=== PATIENT | male | born 2000 | race Caucasian/White ===

== ENCOUNTER 2020-03-22 09:49 | Emergency (ER) | payer SELFPAY ==
[2020-03-22 10:10] VITALS: BP 134/65; PULSE 62; RESP 16; TEMP 36.9; O2SAT 100
--- NOTE | 2020-03-22 10:11 | ED.EAR ---
HPI - Ear Problem General Chief complaint: Ear Stated complaint: Ear pain Time Seen by Provider: 03/22/20 10:11 Source: patient and RN notes reviewed Mode of arrival: ambulatory Limitations: no limitations History of Present Illness HPI Narrative: 19-year-old male presents with concern for left ear pain. Reports frequent ear infections. Reports tympanostomy tubes. Reports drainage from the right ear. He desires nasal congestion, nasal drainage, sore throat, cough, fever, malaise. MD Complaint: ear pain Related Data Allergies Allergy/AdvReac Type Severity Reaction Status Date / Time No Known Allergies Allergy Verified 03/22/20 10:15 Review of Systems Review of Systems: Narrative: CONSTITUTIONAL: Denies malaise, chills, sweats, or fever. EYES: Denies visual changes, redness, or discharge. ENT: Reports rhinorrhea, congestion, sinus pain, and sore throat. Reports left ear pain, right ear drainage CARDIOVASCULAR: Denies chest pain, palpitations, or edema. RESPIRATORY: Denies cough or dyspnea. GASTROINTESTINAL: Denies abdominal pain, nausea, vomiting, diarrhea SKIN: Denies rash or itching. MUSCULOSKELETAL: Denies myalgia. NEUROLOGIC: Denies headache. All systems reviewed & are unremarkable except as noted in HPI and below PMFSH Social History Social History Gender identity (if verbalized by the patient): Male Comments At time of signature, agree with nursing past medical, surgical, social and family history. There is no relevant family history pertinent to the presenting complaint Exam Narrative: Exam Narrative: GENERAL: Well-appearing, well-nourished, and in no acute distress. HEAD: Normocephalic EYES: PERRLA, conjunctivae clear ENT: Nares clear, turbinates pink, no discharge. Mucous membranes moist. Left TM pearly wilson with sharp light reflex, no tympanostomy tube noted, TM intact, auditory canal erythematous and edematous with tragal tenderness; right auditory canal unremarkable, tympanostomy tube intact with purulent drainage. Oropharynx not erythematous without lesions. Tonsils not enlarged and without exudate, no drooling, no hoarseness, no trismus, uvula midline. NECK: Supple. No lymphadenopathy CHEST: Clear to auscultation, breath sounds equal. No wheezing, rhonchi, rales, or stridor. No respiratory distress, speaks in full sentences. HEART: Regular rate and rhythm. No murmur heard. SKIN: Warm, dry, no rash. NEURO: Alert and oriented x3. PSYCH: Normal mood and affect Course Course Emergency Course: Patient is aware of diagnosis, understands and agrees to treatment plan. Anticipatory guidance given. Patient agrees to follow-up as directed and is aware of reasons to seek care at the emergency department. Portions of this record may have been created with voice recognition software Vital Signs Vital signs: Vital Signs Temperature 98.5 F 03/22/20 10:10 Pulse Rate 62 03/22/20 10:10 Respiratory Rate 16 03/22/20 10:10 Blood Pressure 134/65 03/22/20 10:10 Pulse Oximetry 100 03/22/20 10:10 Temperature 98.5 F 03/22/20 10:10 Pulse Rate 62 03/22/20 10:10 Respiratory Rate 16 03/22/20 10:10 Blood Pressure 134/65 03/22/20 10:10 Pulse Oximetry 100 03/22/20 10:10 Reviewed. Pt has been instructed to follow up with his primary care provider within the next week regarding his elevated blood pressure today. Medical Decision Making MDM Narrative Medical decision making narrative: Differential diagnosis considered: Strep pharyngitis, allergic rhinitis, upper respiratory tract infection, sinusitis, rhinosinusitis, nasopharyngitis. viral pharyngitis, otitis media, otitis externa, pneumonia, bronchitis, viral cough syndrome, viral syndrome, and influenza. Exam findings show no acute concerns or changes; patient is non-toxic appearing and is in no distress. Patient is appropriate for outpatient treatment and follow-up. Vital Signs Vital Signs: Vital Signs Temperature 98.5 F 03/22/20 10:10
== END 2020-03-22 10:26 | disposition home or self-care (01) ==
PROVIDERS: Emergency Provider Nurse Practitioner
DX: H66.004 Acute suppurative otitis media without spontaneous rupture of ear drum, recurrent, right ear (principal); H60.502 Unspecified acute noninfective otitis externa, left ear
CPT/HCPCS: 99203; G0463

== ENCOUNTER 2021-02-26 20:19 | Emergency (ER) | payer OTHER, SELFPAY ==
--- NOTE | ~2021-02-26 | XR_ITS ---
EXAMINATION: XR ankle LT min 3V EXAM DATE: 02/26/2021 20:39 INDICATION: Pain to posterior ankle, unable to bear weight. TECHNIQUE: Left ankle frontal, lateral and oblique projections obtained and reviewed. There is no pr ior study for comparison. FINDINGS: The left ankle mortise appears intact. There are no acute fractures or dislocations ident ified. There is no subcutaneous gas. The soft tissue is unremarkable. There are no radiopaque for eign bodies. IMPRESSION: 1. Unremarkable XR ankle LT min 3V exam. Reviewed, dictated and finalized at location A.
[2021-02-26 20:20] VITALS: BP 146/82; PULSE 109; RESP 16; TEMP 36.7; O2SAT 100
--- NOTE | 2021-02-26 20:31 | PC.NURSE ---
XY at bedside for imaging at this time.
--- NOTE | 2021-02-26 20:38 | ED.GENADULT ---
HPI - General Adult General Chief complaint: Extremity Injury, Lower <Carlin Hernandez PA-C - Last Filed: 02/26/21 21:00> Stated complaint: foot injury <Carlin Hernandez PA-C - Last Filed: 02/26/21 21:00> Time Seen by Provider: 02/26/21 20:26 <Carlin Hernandez PA-C - Last Filed: 02/26/21 21:00> Source: patient and RN notes reviewed <Carlin Hernandez PA-C - Last Filed: 02/26/21 21:00> Mode of arrival: EMS <Carlin Hernandez PA-C - Last Filed: 02/26/21 21:00> Limitations: no limitations <Carlin Hernandez PA-C - Last Filed: 02/26/21 21:00> History of Present Illness HPI narrative: Patient is a 20-year-old male who presents to emergency department for evaluation of left ankle pain patient had a pallet glenny run into his ankle while at work today presents per EMS noting aching pain to the posterior aspect of the ankle patient denies other injuries or complaints on arrival does not appear distressed or uncomfortable <Carlin Hernandez PA-C - Last Filed: 02/26/21 21:00> Related Data Allergies/adverse reactions: Allergies Allergy/AdvReac Type Severity Reaction Status Date / Time No Known Allergies Allergy Verified 02/26/21 20:42 <Carlin Hernandez PA-C - Last Filed: 02/26/21 21:00> Review of Systems Review of Systems: All systems reviewed & are unremarkable except as noted in HPI and below <Carlin Hernandez PA-C - Last Filed: 02/26/21 21:00> [facility] Social History Social History: Social History (Updated 02/26/21 @ 20:39 by Carlin Hernandez PA-C) Smoking status: Never smoker Gender identity (if verbalized by the patient): Male <BLANCA Willis Last Filed: 02/26/21 21:00> Exam Narrative: Exam Narrative: GENERAL: Well-appearing, well-nourished, and in no acute distress. HEAD: Normocephalic, atraumatic. EYES: PERRLA and EOMI. ENT: Nares clear, no rhinorrhea or epistaxis. Mucous membranes moist. EXTREMITIES: Normal range of motion. No edema. Tenderness to the posterior aspect of the left ankle no deformity SKIN: Warm, dry, no rash. NEURO: No focal deficits. Alert and oriented x3. Neurovascularly intact PSYCH: Normal mood and affect. <Carlin Hernandez PA-C - Last Filed: 02/26/21 21:00> Course Vital Signs Vital signs: Vital Signs Temperature 98.1 F 02/26/21 20:20 Pulse Rate 109 H 02/26/21 20:20 Respiratory Rate 16 02/26/21 20:20 Blood Pressure 146/82 H 02/26/21 20:20 Pulse Oximetry 100 02/26/21 20:20 Temperature 98.1 F 02/26/21 20:20 Pulse Rate 109 H 02/26/21 20:20 Respiratory Rate 16 02/26/21 20:20 Blood Pressure 146/82 H 02/26/21 20:20 Pulse Oximetry 100 02/26/21 20:20 <Carlin Hernandez PA-C - Last Filed: 02/26/21 21:00> Vital Signs Temperature 98.1 F 02/26/21 20:20 Pulse Rate 109 H 02/26/21 20:20 Respiratory Rate 16 02/26/21 20:20 Blood Pressure 146/82 H 02/26/21 20:20 Pulse Oximetry 100 02/26/21 20:20 Temperature 98.1 F 02/26/21 20:20 Pulse Rate 109 H 02/26/21 20:20 Respiratory Rate 16 02/26/21 20:20 Blood Pressure 146/82 H 02/26/21 20:20 Pulse Oximetry 100 02/26/21 20:20 <Nancy Irwin MD - Last Filed: 02/26/21 21:15> Medical Decision Making MDM Narrative Medical decision making narrative: Patients injury or pain is consistent with musculoskeletal etiology. No signs of neurological or vascular compromise on exam. Compartments and tisues are soft without signs of compartment syndrome. Pain is felt appropriate for further evaluation on an outpatient basis. <Carlin Hernandez PA-C - Last Filed: 02/26/21 21:00> Vital Signs Vital Signs: Vital Signs Temperature 98.1 F 02/26/21 20:20 Pulse Rate 109 H 02/26/21 20:20 Respiratory Rate 16 02/26/21 20:20 Blood Pressure 146/82 H 02/26/21 20:20 Pulse Oximetry 100 02/26/21 20:20 Temperature 98.1 F 02/26/21 20:20 Pulse Rate 109 H 02/26/21 20:20 Respiratory Rate 16 06
[2021-02-26] MEDS: IBUPROFEN 600 MG TABLET PO (20:41)
[2021-02-26 21:23] VITALS: BP 128/78; PULSE 106; RESP 18; O2SAT 100
== END 2021-02-26 21:23 | disposition home or self-care (01) ==
PROVIDERS: Emergency Provider General Practice
DX: S99.912A Unspecified injury of left ankle, initial encounter (principal); W24.0XXA Contact with lifting devices, not elsewhere classified, initial encounter
CPT/HCPCS: 73610; 99283; A9270

== ENCOUNTER 2021-07-03 13:15 | Emergency (ER) | payer OTHER, SELFPAY ==
[2021-07-03 13:24] VITALS: BP 149/87; PULSE 70; RESP 16; TEMP 36.6; O2SAT 99
--- NOTE | 2021-07-03 13:24 | ED.EAR ---
HPI - Ear Problem General Chief complaint: Ear Stated complaint: sore throat Time Seen by Provider: 07/03/21 13:24 Source: patient and RN notes reviewed Mode of arrival: ambulatory Limitations: no limitations History of Present Illness HPI Narrative: Kevin is a 21-year-old male patient who ambulated into the [facility]. Patient states he is having bilateral ear pain starting on Thursday. Patient states he has had a fever. Patient has a long history of ear infections and otitis externa. Patient had tympanostomy tubes placed in 2017. Patient states he is only had 2 infections since. MD Complaint: ear pain Related Data Allergies Allergy/AdvReac Type Severity Reaction Status Date / Time No Known Allergies Allergy Verified 02/26/21 20:42 Review of Systems Review of Systems: CONSTITUTIONAL: Denies body aches, fever, chills, or sweats. EYES: Denies visual changes, redness, or discharge. ENT: Denies rhinorrhea,+ congestion, sore throat, or+ otalgia. CARDIOVASCULAR: Denies chest pain, palpitations, or edema. RESPIRATORY: Denies cough or dyspnea. GASTROINTESTINAL: Denies abdominal pain, nausea, vomiting, or diarrhea. GENITOURINARY: Denies dysuria or hematuria. SKIN: Denies rash, itching, or wounds. MUSCULOSKELETAL: Denies back pain, joint pain, or myalgia. NEUROLOGIC: Denies headache, numbness, tingling, or weakness. PSYCH: Denies depression or anxiety. All systems reviewed & are unremarkable except as noted in HPI and below PMFSH Social History Social History Smoking status: Never smoker Gender identity (if verbalized by the patient): Male Comments At time of signature, I have reviewed and agree with nursing past medical, surgical, social and family history unless otherwise noted. Please see nursing chart for further information. There is no relevant family history pertinent to the presenting complaint Exam Narrative: GENERAL: Well-appearing, well-nourished, and in no acute distress. HEAD: Normocephalic, atraumatic. EYES: EOMI. No redness or drainage. Conjunctivae normal. ENT: Mucous membranes pink nasal membranes erythematous with clear rhinorrhea. Bilateral tympanic membranes are erythematous. Bilateral ear canals are erythematous and swollen. Posterior pharynx is minimally erythemic with moderate amount of drainage and no exudate. Uvula midline. NECK: Normal AROM. Supple. No lymphadenopathy. CHEST: No respiratory distress. Clear to auscultation. MUSCULOSKELETAL: No bony tenderness. EXTREMITIES: Normal range of motion. No edema. SKIN: Warm, dry, no rash. Capillary refill normal. Normal skin turgor. NEURO: No focal deficits. Alert and oriented x3. Gait steady. PSYCH: Normal affect. No signs of depression or anxiety. Course Vital Signs Vital signs: Vital Signs Temperature 36.6 C 07/03/21 13:24 Pulse Rate 70 07/03/21 13:24 Respiratory Rate 16 07/03/21 13:24 Blood Pressure 149/87 H 07/03/21 13:24 Pulse Oximetry 99 07/03/21 13:24 Temperature 36.6 C 07/03/21 13:24 Pulse Rate 70 07/03/21 13:24 Respiratory Rate 16 07/03/21 13:24 Blood Pressure 149/87 H 07/03/21 13:24 Pulse Oximetry 99 07/03/21 13:24 Reviewed. Pt has been instructed to follow up with his PCP regarding his elevated blood pressure today. Medical Decision Making MDM Narrative Medical decision making narrative: Bilateral tympanic membranes are erythematous ,bilateral canals are erythematous and erythemic. Bilateral tympanostomy tubes are noted Differential Diagnosis Differential Diagnosis: Otitis media, otitis externa, sinusitis Medical Records Medical records reviewed: Yes I reviewed the external patient's medical records. Vital Signs Vital Signs: Vital Signs Temperature 36.6 C 07/03/21 13:24 Pulse Rate 70 07/03/21 13:24 Respiratory Rate 16 07/03/21 13:24 Blood Pressure 149/87 H 07/03/21 13:24 Pulse Oximetry 99 07/03/21 13:24
== END 2021-07-03 13:40 | disposition home or self-care (01) ==
PROVIDERS: Emergency Provider Nurse Practitioner Family
DX: H66.003 Acute suppurative otitis media without spontaneous rupture of ear drum, bilateral (principal); H60.503 Unspecified acute noninfective otitis externa, bilateral
CPT/HCPCS: 99213; G0463

== ENCOUNTER 2021-09-04 11:02 | Emergency (ER) | payer OTHER, SELFPAY ==
[2021-09-04 11:57] VITALS: BP 143/107; PULSE 76; RESP 16; TEMP 35.8; O2SAT 98
--- NOTE | 2021-09-04 13:03 | ED.URI ---
HPI - URI/Sore Throat General Chief Complaint: Upper Respiratory Infection Stated Complaint: cough Time Seen by Provider: 09/04/21 13:03 Source: patient Mode of arrival: ambulatory Limitations: no limitations History of Present Illness HPI Narrative: Kevin Rm is a 21 yo male with severe speech impediment states he came to make sure that he does not have the virus. States he has been having a cough sneezing runny nose intermittently and feels tired x 3 days, Will be checked for flu and PCR Covid sent Related Data Home Medications Medication Instructions Recorded Confirmed No Home Medications 09/04/21 09/04/21 Allergies Allergy/AdvReac Type Severity Reaction Status Date / Time No Known Allergies Allergy Verified 02/26/21 20:42 Review of Systems Review of Systems: CONSTITUTIONAL: Denies fever, chills, sweats. Has fatigue EYES: Denies visual changes, redness, discharge. ENT: Denies rhinorrhea, has congestion, sore throat, otalgia. CARDIOVASCULAR: Denies chest pain, palpitations, edema. RESPIRATORY: Denies dyspnea, wheezing, has cough GASTROINTESTINAL: Denies abdominal pain, nausea, vomiting, diarrhea. GENITOURINARY: Denies dysuria, hematuria, abnormal discharge SKIN: Denies rash or itching. NEUROLOGIC: Denies numbness, or focal weakness. PSYCHIATRIC: Denies anxiety or depression. [facility] Social History Social History (Updated 09/04/21 @ 13:12 by Supriya Carson CNP) Smoking status: Never smoker Living arrangements: with family Gender identity (if verbalized by the patient): Male Comments At time of signature, I agree with nursing past medical, surgical, social and family history. There is no relevant family history pertinent to the presenting complaint. Exam Narrative: GENERAL: This is a well-nourished, well-developed patient, in mild distress. HEAD: normocephalic, atraumatic. EYES: Sclera clear/white. Vision is grossly intact. EARS: External ears normal, auditory canals clear and without drainage, . Hearing grossly intact. NOSE: External nose normal with nasal discharge, nares without redness, some rhinorrhea. THROAT: Mucous membranes moist, posterior pharynx mild erythema NECK: Neck supple, CARDIOVASCULAR: Regular rate and rhythm without murmurs, gallops, or rubs. RESPIRATORY: Clear to auscultation. Breath sounds equal bilaterally. No wheezes, rales, or rhonchi. GASTROINTESTINAL: Abdomen soft, SKIN: warm, intact with no suspicious lesions or rash, good texture and turgor. NEURO: awake, alert, and oriented to person, place and time. There were no obvious focal neurologic abnormalities. Steady gait EXTREMITIES: Normal range of motion. BACK: Nontender without deformity Course Course Emergency Course: Patient has had cough sneezing feeling tired x3 days Covid PCR sent Flu test done and is negative Given instructions to quarantine until results received Level of Care: Express Care Visit Vital Signs Vital signs: Vital Signs Temperature 96.4 F L 09/04/21 11:57 Pulse Rate 76 09/04/21 11:57 Respiratory Rate 16 09/04/21 11:57 Blood Pressure 143/107 H 09/04/21 11:57 Pulse Oximetry 98 09/04/21 11:57 Temperature 96.4 F L 09/04/21 11:57 Pulse Rate 76 09/04/21 11:57 Respiratory Rate 16 09/04/21 11:57 Blood Pressure 143/107 H 09/04/21 11:57 Pulse Oximetry 98 09/04/21 11:57 MDM - URI/Sore Throat Differential Diagnosis Differential diagnosis: Likely upper respiratory infection, otitis media, viral infection and other Lab Data Labs: Influenza A Screen Negative Reference Range: Negative Influenza B Screen Negative Reference Range: Negative Critical Care Time Critical Care Time Critical Care Time: No Discharge Plan Discharge Clinical Impression: Upper respiratory infection Qualifiers: URI type: unspecified viral URI
[2021-09-07 13:29] LABS: SARS-CoV-2 RNA PCR Positive
== END 2021-09-04 13:40 | disposition home or self-care (01) ==
PROVIDERS: Nurse Practitioner; Emergency Provider Nurse Practitioner
DX: U07.1 COVID-19 (principal)
CPT/HCPCS: 87804; 99213; C9803; G0463; U0003; U0005

== ENCOUNTER 2022-02-02 08:07 | Emergency (ER) | payer OTHER, SELFPAY ==
--- NOTE | 2022-02-02 08:13 | ED.URI ---
HPI - URI/Sore Throat General Chief Complaint: Upper Respiratory Infection Stated Complaint: fever/abd pain/cough Time Seen by Provider: 02/02/22 08:13 Source: patient Mode of arrival: ambulatory Limitations: no limitations History of Present Illness HPI Narrative: 21-year-old male presents with complaint of headache, cough, nasal congestion, low-grade fever, fatigue and chills for 4 days. Patient is 2 days or. Would like a COVID test. Denies nausea vomiting diarrhea. No chest pain or shortness of breath. All systems reviewed and negative except as noted above. Related Data Home Medications Medication Instructions Recorded Confirmed No Home Medications 09/04/21 02/02/22 Allergies Allergy/AdvReac Type Severity Reaction Status Date / Time No Known Allergies Allergy Verified 02/02/22 08:12 Review of Systems Review of Systems: CONSTITUTIONAL: Reports fever, chills. Denies sweats. EYES: Denies visual changes, redness, or discharge. ENT: Reports rhinorrhea, congestion. Denies sore throat, or otalgia. CARDIOVASCULAR: Denies chest pain, palpitations, or edema. RESPIRATORY: Reports cough. Denies dyspnea. GASTROINTESTINAL: Denies abdominal pain, nausea, vomiting, or diarrhea. GENITOURINARY: Denies dysuria or hematuria. SKIN: Denies rash or itching. MUSCULOSKELETAL: Denies back pain, joint pain, or myalgia. NEUROLOGIC: Denies headache, numbness, or weakness. PSYCHIATRIC: Denies anxiety or depression. All other systems reviewed are negative, except as documented in HPI. PMFSH Social History Social History (Updated 09/04/21 @ 13:12 by Supriya Carson CNP) Smoking status: Never smoker Gender identity (if verbalized by the patient): Male Comments At time of signature, agree with nursing past medical, surgical, social and family history. There is no relevant family history pertinent to the presenting complaint. Exam Narrative: GENERAL: This is a well-nourished, well-developed patient, in no apparent distress. HEAD: normocephalic, atraumatic. EYES: PERRL. Sclera clear/white. Vision is grossly intact. EARS: External ears normal, auditory canals clear and without drainage, TMs normal without perforation. Hearing grossly intact. Tubes noted. NOSE: External nose normal with clear nasal drainage. Mild erythema to both nares. THROAT: Mucous membranes moist, posterior pharynx clear. NECK: Neck supple, non-tender without lymphadenopathy, masses or thyromegaly. CARDIOVASCULAR: Regular rate and rhythm without murmurs, gallops, or rubs. RESPIRATORY: Clear to auscultation. Breath sounds equal bilaterally. No wheezes, rales, or rhonchi. SKIN: warm, Dry, intact with no suspicious lesions or rash, good texture and turgor. NEURO: awake, alert, and oriented to person, place and time. There were no obvious focal neurologic abnormalities. EXTREMITIES: Normal range of motion to all extremities. Course Course Level of Care: Express Care Visit Vital Signs Vital signs: Vital Signs Temperature 37.3 C 02/02/22 08:14 Pulse Rate 97 02/02/22 08:14 Respiratory Rate 16 02/02/22 08:14 Blood Pressure 128/68 02/02/22 08:14 Pulse Oximetry 99 02/02/22 08:14 Oxygen Delivery Room Air 02/02/22 08:14 Temperature 37.3 C 02/02/22 08:14 Pulse Rate 97 02/02/22 08:14 Respiratory Rate 16 02/02/22 08:14 Blood Pressure 128/68 02/02/22 08:14 Pulse Oximetry 99 02/02/22 08:14 Oxygen Delivery Room Air 02/02/22 08:14 Reviewed MDM - URI/Sore Throat MDM Narrative Medical decision making narrative: Patient is aware of diagnosis, understands and agrees to treatment plan. Anticipatory guidance given. Patient agrees to follow-up as directed and is aware of reasons to seek care at the emergency department. Portions of this record may have been created with voice recognition software Negative rapid COVID. Differential Diagnosis Differential diagnosis: Likely upper respiratory infection, sinusitis and vi
[2022-02-02 08:14] VITALS: BP 128/68; PULSE 97; RESP 16; TEMP 37.3; O2SAT 99
== END 2022-02-02 08:40 | disposition home or self-care (01) ==
PROVIDERS: Emergency Provider Nurse Practitioner Family
DX: J06.9 Acute upper respiratory infection, unspecified (principal); Z20.822 Contact with and (suspected) exposure to COVID-19
CPT/HCPCS: 87426; 99212; C9803; G0463

== ENCOUNTER 2022-05-21 09:32 | Emergency (ER) | payer SELFPAY ==
[2022-05-21 09:46] VITALS: BP 122/72; PULSE 60; RESP 16; TEMP 36.7; O2SAT 99
--- NOTE | 2022-05-21 10:23 | ED.GENADULT ---
HPI - General Adult General Chief complaint: Ear Stated complaint: sore throat Source: patient Mode of arrival: ambulatory Limitations: no limitations History of Present Illness HPI narrative: Patient presents for evaluation of pain and drainage from the right ear since yesterday. He has a history of recurrent otitis media and has had tympanostomy tubes placed five times. He has some chronic hearing impairments. No fever, chills, nausea, vomiting, tinnitus, sore throat, or respiratory symptoms. No recent abx use. He states his current symptoms are consistent with those experienced with otitis media in the past. Related Data Allergies Allergy/AdvReac Type Severity Reaction Status Date / Time No Known Allergies Allergy Verified 02/02/22 08:12 Review of Systems Review of Systems: CONSTITUTIONAL: Denies fever, chills, or sweats. EYES: Denies visual changes, redness, or discharge. ENT: Reports pain in the right ear with drainage present. Denies rhinorrhea, congestion, sore throat. CARDIOVASCULAR: Denies chest pain, palpitations, or edema. RESPIRATORY: Denies cough or dyspnea. GASTROINTESTINAL: Denies abdominal pain, nausea, vomiting, or diarrhea. GENITOURINARY: Denies dysuria or hematuria. SKIN: Denies rash or itching. MUSCULOSKELETAL: Denies back pain, joint pain, or myalgia. NEUROLOGIC: Denies headache, numbness, dizziness, or weakness. PSYCHIATRIC: Denies anxiety or depression. [facility] Surgical History Surgical History History of tympanostomy tube placement Family History Family History Mother Family history non-contributory Social History Social History Smoking status: Never smoker Living arrangements: with family Gender identity (if verbalized by the patient): Male Spiritual care concerns: No Exam Narrative: GENERAL: Well-appearing, well-nourished, and in no acute distress. HEAD: Normocephalic, atraumatic. EYES: PERRLA and EOMI. ENT: Nares clear, no rhinorrhea or epistaxis. Mucous membranes moist. Oropharynx without tonsillar hypertrophy exudate or other lesions. There is purulent material behind left TM. Right tympanostomy tube is in place. There is white/yellow purulent material behind right TM and in ear canal. NECK: Supple. No adenopathy or masses. No carotid bruits or JVD CHEST: Clear to auscultation. No respiratory distress. No wheezes rales or rhonchi HEART: Regular rate and rhythm. No murmur heard. Normal peripheral pulses. ABDOMEN: Soft, nontender, nondistended, normal active bowel sounds. EXTREMITIES: Normal range of motion. No edema. SKIN: Warm, dry, no rash. NEURO: No focal deficits. Alert and oriented x3. PSYCH: Normal mood and affect. Course Course Emergency Course: This is a 22-year-old male who presented for evaluation of right-sided ear pain and drainage. Exam is consistent with otitis media. Treat with Augmentin. Follow-up outpatient for further evaluation and treatment and go to the ER for worsening symptoms. Patient in agreement with plan of care. Level of Care: Express Care Visit Vital Signs Vital signs: Vital Signs Temperature 36.7 C 05/21/22 09:46 Pulse Rate 60 05/21/22 09:46 Respiratory Rate 16 05/21/22 09:46 Blood Pressure 122/72 05/21/22 09:46 Pulse Oximetry 99 05/21/22 09:46 Oxygen Delivery Room Air 05/21/22 09:46 Temperature 36.7 C 05/21/22 09:46 Pulse Rate 60 05/21/22 09:46 Respiratory Rate 16 05/21/22 09:46 Blood Pressure 122/72 05/21/22 09:46 Pulse Oximetry 99 05/21/22 09:46 Oxygen Delivery Room Air 05/21/22 09:46 Medical Decision Making Vital Signs Vital Signs: Vital Signs Temperature 36.7 C 05/21/22 09:46 Pulse Rate 60 05/21/22 09:46 Respiratory Rate 16 05/21/22 09:46 Blood Pressure 122/72 05/21/22 09:46 P
== END 2022-05-21 10:24 | disposition home or self-care (01) ==
PROVIDERS: Emergency Provider Nurse Practitioner
DX: H66.006 Acute suppurative otitis media without spontaneous rupture of ear drum, recurrent, bilateral (principal)
CPT/HCPCS: 99213; G0463

== ENCOUNTER 2022-11-20 14:32 | Emergency (ER) | payer SELFPAY ==
[2022-11-20 14:38] VITALS: BP 144/77; PULSE 99; RESP 18; TEMP 36.8; O2SAT 100
--- NOTE | 2022-11-20 14:43 | ED.GENADULT ---
HPI - General Adult General Chief complaint: Abdominal Pain Stated complaint: Fever/Vomiting Time Seen by Provider: 11/20/22 14:43 Source: patient, RN notes reviewed and old records reviewed Mode of arrival: ambulatory Limitations: no limitations History of Present Illness HPI narrative: 22-year-old male presents to the [facility] with complaints of fever, abdominal discomfort, vomiting on Thursday and Thursday. Woke up this morning feeling better. Denies abdominal pain. Requesting a work note to go back tomorrow Related Data Home Medications Medication Instructions Recorded Confirmed No Home Medications 11/20/22 11/20/22 Allergies Allergy/AdvReac Type Severity Reaction Status Date / Time No Known Allergies Allergy Verified 11/20/22 14:38 Review of Systems Review of Systems: All systems reviewed & are unremarkable except as noted in HPI and below Constitutional: Constitutional: Reports no additional constitutional complaints Eyes: Eyes: Reports no additional eye complaints ENT: Reports system reviewed and no additional complaints, except as documented Cardiovascular: Cardiovascular: Reports no additional cardiovascular complaints, Denies chest pain and Denies dyspnea Respiratory: Respiratory: Reports no additional respiratory complaints, Denies chest congestion, Denies cough and Denies dyspnea Gastrointestinal: Gastrointestinal: Reports as per HPI, Denies abdominal pain, Denies nausea and Denies vomiting Musculoskeletal: Musculoskeletal: Reports no additional musculoskeletal complaints Integumentary/Breasts: Skin/Breast: Reports system reviewed and no additional complaints, except as docu Neurologic: Reports system reviewed and no additional complaints, except as documented Psychiatric: Psychiatric: Reports no additional psychiatric complaints Allergic/Immunologic: Allergic/Immunologic: Reports no additional allergic/immunologic complaints [facility] Surgical History Surgical History History of tympanostomy tube placement Family History Family History Mother Family history non-contributory Social History Social History Smoking status: Never smoker Living arrangements: with family Gender identity (if verbalized by the patient): Male Spiritual care concerns: No Comments At the time of my signature, I reviewed and agree with the nursing past medical, surgical, social, and family history. There is no relevant family history pertinent to the patient complaint. Exam Const: General: cooperative, healthy appearing, comfortable, no acute distress, well developed, alert and well nourished Nutritional Appearance: well nourished and obese Orientation/consciousness: patient oriented x3 Limitations: no limitations HENMT: Head: normal to inspection Ears: hearing grossly normal bilaterally and external ears normal Face/Nose/Sinus: Normal external nose present, Normal nares present, Normal nasal mucous membranes and turbinates present and normal facial exam Face and sinus: normal facial exam Mouth: Yes Normal oral and palatal mucosa present, Yes lip normal and Yes moist mucous membranes Eyes: General: appearance normal, both eyes and all related structures Alignment and Position: alignment normal Periorbital: periorbital findings normal Conjunctivae: conjunctivae normal Pupils: Equal, round and reactive pupils present EOM: EOMs intact bilaterally Neck: Neck: normal visual inspection, full ROM, no lymphadenopathy and no meningeal signs Chest: Chest palpation & inspection: normal inspection of the chest Resp: Effort & Inspection: normal respiratory effort and able to speak in complete sentences Auscultation: clear to auscultation bilaterally, no crackles, no rales, no rhonchi and no wheezes Cardio: Rate: regular rate Rhythm: re
== END 2022-11-20 15:16 | disposition home or self-care (01) ==
PROVIDERS: Emergency Provider Nurse Practitioner
DX: R10.9 Unspecified abdominal pain (principal); R11.2 Nausea with vomiting, unspecified; Z20.822 Contact with and (suspected) exposure to COVID-19
CPT/HCPCS: 87426; 87804; 99212; C9803; G0463

== ENCOUNTER 2024-02-15 09:22 | Emergency (ER) | payer BC, SELFPAY ==
[2024-02-15 09:29] VITALS: BP 148/91; PULSE 62; RESP 20; TEMP 37; O2SAT 100
--- NOTE | 2024-02-15 10:26 | ED.GENADULT ---
HPI - General Adult General Chief complaint: Ear Stated complaint: Earache Time Seen by Provider: 02/15/24 10:20 Source: patient, RN notes reviewed and old records reviewed Mode of arrival: ambulatory Limitations: no limitations History of Present Illness HPI narrative: 23-year-old male presents to the [facility] with complaints of bilateral ear pain for 6 days. Reports that he had drainage coming from his ears. Also reports nasal congestion. States he takes Benadryl every night, no other treatment prior to or arrival Onset (ago): day(s) (6) Related Data Home Medications Medication Instructions Recorded Confirmed diphenhydramine HCl 25 mg capsule 25 mg PO HS PRN allergies 02/15/24 02/15/24 (Benadryl) Allergies Allergy/AdvReac Type Severity Reaction Status Date / Time No Known Allergies Allergy Verified 02/15/24 10:10 Review of Systems Review of Systems: All systems reviewed & are unremarkable except as noted in HPI and below Constitutional: Constitutional: Reports no additional constitutional complaints Eyes: Eyes: Reports no additional eye complaints ENT: Reports as per HPI and Reports otalgia Cardiovascular: Cardiovascular: Reports no additional cardiovascular complaints, Denies chest pain and Denies dyspnea Respiratory: Respiratory: Reports no additional respiratory complaints, Denies chest congestion, Denies cough and Denies dyspnea Gastrointestinal: Gastrointestinal: Reports no additional gastrointestinal complaints, Denies abdominal pain, Denies nausea and Denies vomiting Musculoskeletal: Musculoskeletal: Reports no additional musculoskeletal complaints Integumentary/Breasts: Skin/Breast: Reports system reviewed and no additional complaints, except as docu Neurologic: Reports system reviewed and no additional complaints, except as documented Psychiatric: Psychiatric: Reports no additional psychiatric complaints Allergic/Immunologic: Allergic/Immunologic: Reports no additional allergic/immunologic complaints [facility] Surgical History Surgical History History of tympanostomy tube placement Family History Family History Mother Family history non-contributory Social History Social History Smoking status: Never smoker Living arrangements: with family Gender identity (if verbalized by the patient): Male Spiritual care concerns: No Comments At the time of my signature, I reviewed and agree with the nursing past medical, surgical, social, and family history. There is no relevant family history pertinent to the patient complaint. Exam Const: General: cooperative, healthy appearing, comfortable, no acute distress, well developed, alert and well nourished Nutritional Appearance: well nourished Orientation/consciousness: patient oriented x3 Limitations: no limitations HENMT: Head: normal to inspection Ears: hearing grossly normal bilaterally, external ears normal, mastoids normal, no periauricular adenopathy, Abnormal EAC present erythema on the right and EAC tenderness on the right; no edema and no otic discharge and TM abnormal bulging on the left and erythematous on the left Face/Nose/Sinus: Normal external nose present, Normal nares present, Normal nasal mucous membranes and turbinates present, No nasal discharge present, normal facial exam and face symmetric Face and sinus: normal facial exam and face symmetric Mouth: Yes Normal oral and palatal mucosa present, Yes lip normal and Yes tongue normal Throat: posterior oropharynx normal, uvula midline and no uvular edema Eyes: General: appearance normal, both eyes and all related structures Alignment and Position: alignment normal Periorbital: periorbital findings normal Pupils: Equal, round and reactive pupils present EOM: EOMs intact bilaterally Neck: Neck: normal visual ins
== END 2024-02-15 10:35 | disposition home or self-care (01) ==
PROVIDERS: Emergency Provider Nurse Practitioner
DX: H66.92 Otitis media, unspecified, left ear (principal); H61.891 Other specified disorders of right external ear
CPT/HCPCS: 99213; G0463

== ENCOUNTER 2024-03-10 09:18 | Emergency (ER) | payer BC, SELFPAY ==
[2024-03-10 09:32] VITALS: BP 114/68; PULSE 69; RESP 20; TEMP 36.9; O2SAT 100
--- NOTE | 2024-03-10 09:34 | ED.EAR ---
HPI - Ear Problem General Chief complaint: Ear Stated complaint: Ears Irritation/Sore Throat Time Seen by Provider: 03/10/24 09:35 Source: patient, RN notes reviewed and old records reviewed Mode of arrival: ambulatory Limitations: no limitations History of Present Illness HPI Narrative: Patient presents with complaints of ear and throat pain. He reports the pain has been intermittent for approximately 1 month. He was treated last month for otitis media. He does get frequent ear infections, has had several sets of tubes placed in. He reports intermittent fever. Does complain of a runny nose. Has not been taking anything for his symptoms since treatment for his last ear infection. Voices no other concerns or complaints today Related Data Allergies Allergy/AdvReac Type Severity Reaction Status Date / Time No Known Allergies Allergy Verified 03/10/24 09:31 Review of Systems Review of Systems: All systems reviewed & are unremarkable except as noted in HPI and below Constitutional: Constitutional: Reports no additional constitutional complaints and Reports fever(s) ENT: Reports system reviewed and no additional complaints, except as documented, Reports otalgia, Reports nasal discharge and Reports sore throat Cardiovascular: Cardiovascular: Reports no additional cardiovascular complaints Respiratory: Respiratory: Reports no additional respiratory complaints Gastrointestinal: Gastrointestinal: Reports no additional gastrointestinal complaints [facility] Surgical History Surgical History History of tympanostomy tube placement Family History Family History Mother Family history non-contributory Social History Social History Smoking status: Never smoker Living arrangements: with family Gender identity (if verbalized by the patient): Male Spiritual care concerns: No Comments At the time of my signature, I reviewed and agree with the nursing past medical, surgical, social, and family history. There is no relevant family history pertinent to the patient complaint. Exam Const: General: cooperative, no acute distress, alert and awake Orientation/consciousness: oriented to person, oriented to place and oriented to time HENMT: Head: normal to inspection Ears: TM abnormal dull (Bilateral), erythematous (Left), with myringotomy tube present bilateral and scarred (Bilateral) Mouth: Yes moist mucous membranes Throat: posterior oropharynx normal Resp: Effort & Inspection: normal respiratory effort and able to speak in complete sentences Auscultation: clear to auscultation bilaterally, no crackles, no rales, no rhonchi and no wheezes Cardio: Palpation: normal PMI Rate: regular rate Rhythm: regular rhythm Heart sounds: S1 normal heart sound present and S2 normal heart sound present Neuro: General: oriented to person, oriented to place and oriented to time Cranial nerves: Yes CN's II-XII intact bilaterally Psych: Appearance: grossly normal Thought process: Normal thought process present Insight: Good insight present (Psych) Judgement: Good judgement present (Psych) Course Course Level of Care: Express Care Visit Vital Signs Vital signs: Vital Signs Temperature 98.4 F 03/10/24 09:32 Pulse Rate 69 03/10/24 09:32 Respiratory Rate 20 03/10/24 09:32 Blood Pressure 114/68 03/10/24 09:32 Pulse Oximetry 100 03/10/24 09:32 Oxygen Delivery Room Air 03/10/24 09:32 Temperature 98.4 F 03/10/24 09:32 Pulse Rate 69 03/10/24 09:32 Respiratory Rate 20 03/10/24 09:32 Blood Pressure 114/68 03/10/24 09:32 Pulse Oximetry 100 03/10/24 09:32 Oxygen Delivery Room Air 03/10/24 09:32 Reviewed Medical Decision Making MDM Narrative Medical decision making narrative: Patient with frequent ear infections, failed last antib
[2024-03-10 10:01] LABS: EDSTREPNEGPOS1 Presumptive Negative
== END 2024-03-10 09:55 | disposition home or self-care (01) ==
PROVIDERS: Emergency Provider Nurse Practitioner Family
DX: H66.42 Suppurative otitis media, unspecified, left ear (principal); Z96.22 Myringotomy tube(s) status
CPT/HCPCS: 87880; 99213; G0463

== ENCOUNTER 2024-08-08 07:58 | Outpatient (CLI) | payer BC, SELFPAY ==
--- NOTE | ~2024-08-08 | US_ITS ---
Limited Abdominal Sonogram: Real-time sonographic imaging of the right upper quadrant was performed. Clinical History: Abnormal liver enzymes Findings: The liver appears mildly heterogeneous, with no evidence of mass lesion or bile duct dilat ation. Main portal vein demonstrates normal direction of flow. The gallbladder is well distended, and appears normal with no evidence of gallstone or wall thickening. The common bile duct measures 3 mm. The visualized pancreas, aorta, and IVC are unremarkable. Right kidney measures 10.4 cm in length, without hydronephrosis or renal stone. Impression: Suspected diffuse fatty infiltration of the liver. Reviewed, dictated and finalized at location M. T ADMINISTRATOR Impression: Suspected diffuse fatty infiltration of the liver.
== END 2024-08-08 07:59 | disposition home or self-care (01) ==
PROVIDERS: PCP Emergency Medicine; Visit Provider Emergency Medicine
DX: R74.8 Abnormal levels of other serum enzymes (principal)
CPT/HCPCS: 76705

== ENCOUNTER 2024-08-18 10:20 | Emergency (ER) | payer BC, SELFPAY ==
[2024-08-18 10:39] VITALS: BP 128/79; PULSE 63; RESP 16; TEMP 36.7; O2SAT 99
--- NOTE | 2024-08-18 11:45 | ED.URI ---
HPI - URI/Sore Throat General Chief Complaint: Upper Respiratory Infection Stated Complaint: stuffy nose,press in ears,sore throat Time Seen by Provider: 08/18/24 11:45 Source: patient, RN notes reviewed and old records reviewed Mode of arrival: ambulatory Limitations: no limitations History of Present Illness HPI Narrative: 24-year-old male presents to the [facility] with complaints of ear pressure, sore throat, stuffy nose that started yesterday. Reports taking a dose of cold medicine Related Data Allergies Allergy/AdvReac Type Severity Reaction Status Date / Time No Known Allergies Allergy Verified 08/18/24 10:47 Review of Systems Review of Systems: All systems reviewed & are unremarkable except as noted in HPI and below Constitutional: Constitutional: Reports no additional constitutional complaints ENT: Reports as per HPI, Reports otalgia and Reports sore throat Cardiovascular: Cardiovascular: Reports no additional cardiovascular complaints, Denies chest pain and Denies dyspnea Respiratory: Respiratory: Reports no additional respiratory complaints, Denies chest congestion, Denies cough and Denies dyspnea Musculoskeletal: Musculoskeletal: Reports no additional musculoskeletal complaints Integumentary/Breasts: Skin/Breast: Reports system reviewed and no additional complaints, except as docu [facility] Surgical History Surgical History History of tympanostomy tube placement Family History Family History Mother Family history non-contributory Social History Social History Smoking status: Never smoker Living arrangements: with family Gender identity (if verbalized by the patient): Male Spiritual care concerns: No Comments At the time of my signature, I reviewed and agree with the nursing past medical, surgical, social, and family history. There is no relevant family history pertinent to the patient complaint. Exam Const: General: cooperative, healthy appearing, comfortable, no acute distress, well developed, alert and well nourished Nutritional Appearance: well nourished Orientation/consciousness: patient oriented x3 Limitations: no limitations HENMT: Head: normal to inspection Ears: TM abnormal with myringotomy tube present bilateral Face/Nose/Sinus: normal facial exam and face symmetric Face and sinus: normal facial exam and face symmetric Mouth: Yes Normal oral and palatal mucosa present, Yes lip normal and Yes tongue normal Throat: posterior oropharynx normal, uvula midline, postnasal drainage and no uvular edema Eyes: General: appearance normal, both eyes and all related structures Neck: Neck: normal visual inspection, full ROM, no lymphadenopathy and no meningeal signs Chest: Chest palpation & inspection: normal inspection of the chest Resp: Effort & Inspection: normal respiratory effort and able to speak in complete sentences Auscultation: clear to auscultation bilaterally, no crackles, no rales, no rhonchi and no wheezes Cardio: Rate: regular rate Skin: General skin exam: normal color and no rashes or lesions noted Neuro: General: patient oriented x3, gait normal, moves all extremities and no meningeal signs Cognition (Neuro): normal cognition Speech: normal speech Gait exam (Neuro): Normal gait present Extrem: General: normal to inspection, full ROM, capillary refill normal and normal gait Psych: Appearance: grossly normal and well kempt Mental Status: mental status grossly normal Speech and movement: Normal speech and movement present and Clear speech present Affect: normal affect Attitude: cooperative Course Course Level of Care: Express Care Visit Vital Signs Vital signs: Vital Signs Temperature 98.1 F 08/18/24 10:39 Pulse Rate 63 08/18/24 10:39 Respiratory Rate 16 08/18/24 10:39 Blood Pressure 128/79 08/18/24 10:39 Pulse Oximetry 99 08/18/24 10:39 Oxygen Delivery Room Air 08/18/24 10:39 Temperature 98.1 F 08/18/24 10:39 Pulse Rate 63 08/18/24 10:39 Respiratory Rate 16 08/18/24 10:39 Blood Pressure 128/79 08/18/24 10:39 Pulse Oximetry 99 08/18/24 10:39 Oxygen Delivery Room Air 08/18/24 10:39 Reviewed MDM - URI/Sore Throat MDM Narrative Medical decision making narrative: Patient sitting comfortably in exam room. Nontoxic, vitals stable. Patient in no acute distress. Patient presents with sore throat times as well as symptoms. Postnasal drainage noted, no other acute findings noted on exam Patient appropriate for outpatient treatment and follow-up Discharge instructions reviewed with patient, as well as provided in writing per nursing staff. The instructions also include specific and strict return/GO TO THE ER as well as f/u information. All questions have been answered, and the patient deny any further questions with discharge and discharge plan. Some parts of this dictation were generated by voice recognition software and may contain typographical and/or grammatical inaccuracies. Differential Diagnosis Differential diagnosis: Likely upper respiratory infection, otitis media, sinusitis, viral infection, bronchitis and pharyngitis Lab Data Labs: Lab Results 08/18/24 Range/Units 11:55 POC Grp A Strep Screen Negative (Negative) Reviewed Critical Care Time Critical Care Time Critical Care Time: No Discharge Plan Discharge Clinical Impression: Upper respiratory infection Qualifiers: URI type: unspecified viral URI Qualified Code(s): J06.9 - Acute upper respiratory infection, unspecified Patient Disposition: Home, Self-Care Condition: Stable Instructions: Antibiotic Form, Upper Respiratory Infection (DC) Additional Instructions: Your rapid strep swab was negative today at [facility]. A throat culture will be sent to the laboratory for further testing. If the test is positive, you will receive a phone call within 48 hours and an appropriate antibiotic will be initiated at that time. Your symptoms are likely due to a viral illness, which is not treated with antibiotics. Typically viral infections last 7-10 days, can linger for couple of weeks. It is very important to treat your symptoms. Drink plenty of water, Gatorade, Pedialyte, ice pops or Jell-O. -Alternate Tylenol and Motrin per package directions for fever or pain. You can alternate every 4 hours -Antihistamine medication such as Benadryl at night and Zyrtec/Claritin/Roxi during the day can help improve symptoms. -doing daily nasal irrigations can help relieve pressure your sinuses. Things like a Neti pot -Use Flonase twice a day for 5 days then daily to help reduce the inflammation and dry up your sinuses. -You can also use Mucinex. Be sure to drink plenty of water with this medication at least 8 ounces with every dose and it is important to drink 8 to 10 glasses of water per day. Water is a natural decongestant -Eat and drink things that are easy to swallow, like tea or soup, or popsicles. -Oral rinses such as: Salt water gargles and/or may use topical anesthetic (eg. Chloraseptic spray) or lozenges to relieve dryness or throat pain). -Frequent hand washing or hand aquatics director is one of the best ways to prevent spread of infection. -Using a vaporizer or humidifier at night will also help thin secretions and help with coughing up phlegm. -Follow up with primary care provider in 7-10 days if condition is not improving - For new or worsening symptoms go directly to the nearest ER Patient Language: Telugu Follow-up/Referrals: Joseph Rodrigues MD [Primary Care Provider] - 2 Weeks ([facility] Stand Alone Forms: Work/School Release IP Time of Disposition: 12:04
[2024-08-18 12:04] LABS: EDSTREPNEGPOS1 Negative (Negative)
== END 2024-08-18 12:10 | disposition home or self-care (01) ==
PROVIDERS: Emergency Provider Nurse Practitioner; PCP Emergency Medicine
DX: J06.9 Acute upper respiratory infection, unspecified (principal)
CPT/HCPCS: 87081; 87880; 99213; G0463

== ENCOUNTER 2024-10-06 09:50 | Emergency (ER) | payer BC, SELFPAY ==
--- NOTE | 2024-10-06 10:10 | ED.URI ---
HPI - URI/Sore Throat General Chief Complaint: Upper Respiratory Infection Stated Complaint: Fever/Congestion Time Seen by Provider: 10/06/24 10:10 Source: patient Mode of arrival: ambulatory Limitations: no limitations History of Present Illness HPI Narrative: Kevin is a 24-year-old male patient presenting to the clinic today with complaints of cough, sore throat, fever, nasal congestion, and chest congestion x2 days. He reports he did have fever but it has broke. Denies any chest pain or shortness of breath. MD elicited complaint: fever, cough, sore throat, rhinorrhea and nasal congestion Related Data Allergies Allergy/AdvReac Type Severity Reaction Status Date / Time No Known Allergies Allergy Verified 10/06/24 10:10 Review of Systems Review of Systems: Pertinent positives per HPI. Patient denies any rash, headache, visual changes, dizziness, shortness of breath, chest pain, palpitations, nausea, vomiting, diarrhea, constipation, abdominal pain, or any urinary issues. PMFSH Surgical History Surgical History History of tympanostomy tube placement Family History Family History Mother Family history non-contributory Social History Social History Smoking status: Never smoker Living arrangements: with family Gender identity (if verbalized by the patient): Male Spiritual care concerns: No Comments At the time of my signature, I reviewed and agree with the nursing past medical, surgical, social, and family history. There is no relevant family history pertinent to the patient complaint. Exam Narrative: General: Well-developed, well nourished, in no apparent distress Head: Normocephalic, atraumatic Eyes: Pupils equally round and reactive to light bilaterally, EOM intact, sclera and conjunctive clear, no discharge, lids normal Ears: Left TMs intact, bulging, red, right TM intact, bulging, with fluid noted behind the TM, ear canals clear, no drainage, grossly hearing normal. Nose: Nares patent, clear nasal discharge, moderate inflammation, no sinus tenderness. Mouth: Oral pharynx red without lesions or masses, good dentition, MMM. Postnasal drip Neck: Supple, trachea midline, no enlargement of anterior or posterior cervical nodes, no thyroid masses or goiter palpable. Cardio: Regular rate and rhythm, s1 and s2 normal, no murmur appreciated. Resp: Clear to auscultation bilaterally, no rhonchi, rales, wheezing or rubs Course Course Emergency Course: Portions of this record may have been created with voice recognition software. Level of Care: Express Care Visit Vital Signs Vital signs: Vital Signs Temperature 36.6 C 10/06/24 10:16 Pulse Rate 79 10/06/24 10:16 Respiratory Rate 16 10/06/24 10:16 Blood Pressure 115/78 10/06/24 10:16 Pulse Oximetry 100 10/06/24 10:16 Oxygen Delivery Room Air 10/06/24 10:16 Temperature 36.6 C 10/06/24 10:16 Pulse Rate 79 10/06/24 10:16 Respiratory Rate 16 10/06/24 10:16 Blood Pressure 115/78 10/06/24 10:16 Pulse Oximetry 100 10/06/24 10:16 Oxygen Delivery Room Air 10/06/24 10:16 Vital signs reviewed MDM - URI/Sore Throat MDM Narrative Medical decision making narrative: At the time of visit patient is resting comfortably on the exam table. Patient appears to be nontoxic. Labs: COVID, influenza, and strep test were all performed. All testing was negative. We will send strep for culture. Plan: I suspect patient has left otitis media and right serous otitis media with URI. Will send in prescription for prednisone and amoxicillin. Supportive measures were discussed with the patient and they voiced understanding discharge instructions and agrees to treatment plan. Return precautions reviewed Differential Diagnosis Differential diagnosis: Likely upper respiratory infection, otitis media, sinusitis, viral infection, bronchitis, influenza, pharyngitis and other (COVID) Discharge Plan Discharge Clinical Impression: Acute left otitis media, Right acute serous otitis media, Upper respiratory infection with cough and congestion Patient Disposition: Home, Self-Care Condition: Stable Instructions: Antibiotic Form, Ear Infection (ED), Fluid In The Ear (Serous Otitis Media) (ED) Additional Instructions: COVID, influenza, and strep test were all negative in the clinic today. We will send strep for culture. Take prescription medications only as prescribed-prednisone and amoxicillin Increase fluids and stay well hydrated Tylenol/motrin for pain/fever Flonase and OTC antihistamines as directed Vicks vapor rub to open sinuses Sinus rinses for congestion Cepacol spray, cough drops, throat lozenges, warm tea with honey/lemon, gargle salt water to soothe throat BRAT diet for diarrhea Clear liquids x 24 hours then advance as tolerated for nausea/vomiting Go to the ED if you develop a worsening in your condition- high fever not controlled by Tylenol or Motrin, dehydration, weakness, lethargy, shortness of breath, or chest pain. Follow up with your PCP in 3-5 days if symptoms persist. Patient Language: Belarusian Prescriptions: New prednisone 20 mg tablet 40 mg PO DAILY 5 Days Qty: 10 0RF amoxicillin 875 mg tablet 875 mg PO Q12H 10 Days Qty: 20 0RF Follow-up/Referrals: Joseph Rodrigues MD [Primary Care Provider] - Stand Alone Forms: Work/School Release IP Time of Disposition: 10:25 Quality NIHSS Nursing Documentation ED NIHSS nursing documentation: reviewed/agree
[2024-10-06 10:16] VITALS: BP 115/78; PULSE 79; RESP 16; TEMP 36.6; O2SAT 100
[2024-10-06 10:34] LABS: EDCOVIDSCREEN Negative (Negative); EDINFLUASCREEN Negative (Negative); EDINFLUBSCREEN Negative (Negative); EDSTREPNEGPOS1 Negative (Negative)
== END 2024-10-06 10:40 | disposition home or self-care (01) ==
PROVIDERS: Emergency Provider Nurse Practitioner Family; PCP Emergency Medicine
DX: H66.92 Otitis media, unspecified, left ear (principal); H65.01 Acute serous otitis media, right ear; J06.9 Acute upper respiratory infection, unspecified; R05.9 Cough, unspecified; Z20.822 Contact with and (suspected) exposure to COVID-19
CPT/HCPCS: 87081; 87426; 87804; 87880; 99213; G0463

== ENCOUNTER 2025-05-06 11:15 | Emergency (ER) | payer BC, SELFPAY ==
[2025-05-06 11:26] VITALS: BP 114/53; PULSE 50; RESP 20; TEMP 36.7; O2SAT 100
--- NOTE | 2025-05-06 11:29 | ED.URI ---
HPI - URI/Sore Throat General Chief Complaint: Upper Respiratory Infection Stated Complaint: pain in both ears/flu symptoms Per patient presents the express care with complaints of nasal congestion, sinus pain, headaches, pain in both ears with minimal drainage from both ears that began last night. Patient does report a long history of ear infections and currently does have tubes in place. Feels like an ear infection like he normally gets. No medication or remedies attempted for symptoms. Denies fever, chills, body aches, sore throat, shortness of breath, or dizziness. Related Data Allergies Allergy/AdvReac Type Severity Reaction Status Date / Time No Known Allergies Allergy Verified 05/06/25 11:22 Review of Systems Constitutional: Constitutional: Reports as per HPI, Denies chills, Denies fatigue, Denies fever(s) and Denies weakness Eyes: Eyes: Reports no additional eye complaints ENT: Reports as per HPI, Denies vertigo, Denies dizziness, Denies epistaxis, Reports nasal congestion and Denies sore throat Comments: Pain in both ears, drainage from both ears Cardiovascular: Cardiovascular: Reports no additional cardiovascular complaints Respiratory: Respiratory: Reports as per HPI, Denies chest congestion and Denies cough Gastrointestinal: Gastrointestinal: Reports no additional gastrointestinal complaints Genitourinary: Genitourinary: Reports no additional male genitourinary complaints Musculoskeletal: Musculoskeletal: Reports no additional musculoskeletal complaints Integumentary/Breasts: Skin/Breast: Reports system reviewed and no additional complaints, except as docu Neurologic: Reports as per HPI, Denies vertigo, Denies dizziness, Denies syncope and Reports headache(s) Psychiatric: Psychiatric: Reports no additional psychiatric complaints Endocrine: Endocrine: Reports no additional endocrine complaints Hematologic/Lymphatic: Hematologic/Lymphatic: Reports no additional hematologic/lymphatic complaints Allergic/Immunologic: Allergic/Immunologic: Reports no additional allergic/immunologic complaints [facility] Surgical History Surgical History History of tympanostomy tube placement Family History Family History Mother Family history non-contributory Social History Social History Smoking status: Never smoker Living arrangements: with family Gender identity (if verbalized by the patient): Male Spiritual care concerns: No Exam Const: General: healthy appearing and no acute distress Nutritional Appearance: well nourished Orientation/consciousness: patient oriented x3 Limitations: no limitations HENMT: Head: normal to inspection Ears: external ears normal and TM's abnormal bilaterally Face/Nose/Sinus: Normal external nose present and Normal nares present Face and sinus: normal facial exam and sinuses nontender Mouth: Yes Normal oral and palatal mucosa present Throat: posterior oropharynx abnormal Other: right TM tube in place draining purulence drainage with significant swelling, erythema, dullness with complete loss of bony landmarks. Left TM moderate erythema with the labs and loss of bony landmarks with purulence drainage from the tube in place. Neck: Neck: normal visual inspection and no lymphadenopathy Resp: Effort & Inspection: normal respiratory effort Auscultation: clear to auscultation bilaterally Cardio: Rate: regular rate Rhythm: regular rhythm Skin: General skin exam: normal color Rashes: no rashes Wounds: no wounds Neuro: General: patient oriented x3 Speech: normal speech Gait exam (Neuro): Normal gait present Psych: Mental Status: mental status grossly normal Affect: normal affect Attitude: cooperative Course Course Level of Care: Express Care Visit Vital Signs Vital signs: Vital Signs Temperature 98.1 F 05/06/25 11:26 Pulse Rate 50 L 05/06/25 11:26 Respiratory Rate 05/06/25 11:26 Blood Pressure 114/53 L 05/06/25 11:26 Pulse Oximetry 100 05/06/25 11:26 Oxygen Delivery Room Air 05/06/25 11:26 Temperature 98.1 F 05/06/25 11:26 Pulse Rate 50 L 05/06/25 11:26 Respiratory Rate 05/06/25 11:26 Blood Pressure 114/53 L 05/06/25 11:26 Pulse Oximetry 100 05/06/25 11:26 Oxygen Delivery Room Air 05/06/25 11:26 MDM - URI/Sore Throat MDM Narrative Medical decision making narrative: Flu and COVID tested in clinic today. Bilateral ear infections noted. The patient was evaluated by myself in the express care. History is obtained from patient who is an independent historian and physical exam was performed. Available medical records were reviewed at this time. Exam findings show no acute concerns or changes; patient is non-toxic appearing and is in no distress. Patient is appropriate for outpatient treatment and follow-up. I have evaluated and discussed social determinants of health with the patient that could potentially impact subsequent diagnosis and treatment plans. Differential diagnosis and treatment plan were discussed with the patient. Patient agrees with discussion and after shared medical decision making agrees with plan of care. All questions were answered to the patient's satisfaction. Differential Diagnosis Differential diagnosis: Likely upper respiratory infection, otitis media, sinusitis, viral infection, influenza and pharyngitis Medical Records Attestation: I reviewed the patient's medical records. Lab Data Attestation: I reviewed the patient's lab results. Discharge Plan Discharge Clinical Impression: Acute otitis media, bilateral Patient Disposition: Home Condition: Stable Instructions: Antibiotic Form, Ear Infection (ED) Additional Instructions: take the antibiotics until gone. May use probiotics or yogurt daily to help with upset stomach /diarrhea with antibiotic use. May use Tylenol and ibuprofen to help with pain or fever. May use warm compresses to the outside of the ear to help with pain. Can also use Sudafed and Flonase nasal spray to help with symptoms associated with ear infection and help the ears drain. Follow-up with primary care physician if symptoms not improving or worsen. -Ear drops as directed for 7days -When administer drug into the affected ear; make sure to ly down with the affected ear facing upward, message the ear canal to help the drops reach the medial end of the canal, then remain in that position for at least 5 mintues. -Avoid using cotton tipped applicator for ears cleaning -Avoid exposing swimming or exposing the affected ear to water during the treatment period Take or alternate tylenol or ibuprofen every 4 - 6 hours if needed for pain. Follow up with primary care provider if condition is not improving in 7 days or sooner if there is new concern. Patient Language: Jamaican Prescriptions: New amoxicillin 875 mg tablet 875 mg PO Q12H Qty: 20 0RF ofloxacin 0.3 % drops 10 drp EACH EAR DAILY 7 Days Qty: 10 0RF Follow-up/Referrals: Joseph Rodrigues MD [Primary Care Provider, [facility]] Time of Disposition: 11:42
[2025-05-06 11:44] LABS: EDCOVIDSCREEN Negative (Negative); EDINFLUASCREEN Negative (Negative); EDINFLUBSCREEN Negative (Negative)
== END 2025-05-06 11:44 | disposition home or self-care (01) ==
PROVIDERS: Emergency Provider Nurse Practitioner Family; PCP Emergency Medicine
DX: H66.93 Otitis media, unspecified, bilateral (principal); Z20.822 Contact with and (suspected) exposure to COVID-19
CPT/HCPCS: 87426; 87804; 99213; G0463